=== PATIENT | female | born 1985 | race Hispanic/Latino ===

== ENCOUNTER → 2020-05-01 | Day surgery (SDC) | payer OTHER ==
[~2020-05-01] MED LIST: LIDOCAINE HCL 2% LOCAL INJ 5 ML SDV VIAL INJ ONE; METFORMIN HCL500 MG PO; PROPOFOL IV EMULSION 10 MG/ML 20 ML VIAL ONE; SERTRALINE HCL50 MG PO; SPIRONOLACTONE25 MG PO
[2020-05-01 07:35] VITALS: BP 129/95
== END | disposition home or self-care (01) ==
LOC: OR 05:28
PROVIDERS: ATTEND Internal Medicine Gastroenterology
DX: K29.50 Unspecified chronic gastritis without bleeding (principal); K44.9 Diaphragmatic hernia without obstruction or gangrene; E11.9 Type 2 diabetes mellitus without complications; K76.0 Fatty (change of) liver, not elsewhere classified; M06.9 Rheumatoid arthritis, unspecified; F41.9 Anxiety disorder, unspecified; F31.9 Bipolar disorder, unspecified; Z01.812 Encounter for preprocedural laboratory examination; Z11.59 Encounter for screening for other viral diseases; Z79.84 Long term (current) use of oral hypoglycemic drugs
CPT/HCPCS: 43239; 81025; 87635; 88305; 88312; J2001; J2704